=== PATIENT | male | born 1960 | race Caucasian/White ===

== ENCOUNTER → 2016-06-04 | Outpatient (CLI) | payer OTHER ==
[~2016-06-04] VITALS: Ht 177.8 cm; Wt 68.0 kg
[~2016-06-04] MED LIST: ADULT LOW DOSE81 MG PO; AMOXICILLIN 50500 M1 PO; BENADRYL25 MG PO; DURAGESIC TD; FOSAMAX 10 MG10 M1 PO; IMMODIUM PO; LISINOPRIL20 MG PO; LOPRESSOR 12.12.5 MG PO; LOPRESSOR 50 MG50 M1 PO; LOPRESSOR25 PO; MULTIVITAMINS PO; OLANZAPINE20 MG PO; OMEPRAZOLE PO; OXYCODONE HCL15 MG PO; OXYCODONE HCL30 MG PO; OXYCODONE HCL5 M1 PO; OXYCONTIN PO; OXYCONTIN20 M1 PO; OXYCONTIN30 MG PO; OXYCONTIN40 MG PO; PHENERGAN 25 MG25 MG PO; PRENATAL MULTI1 EAC2 PO; PRILOSEC 20 MG20 MG PO; PRILOSEC40 MG PO; REMICADE 1100 MG/VIA IV; remicade IV
[2016-06-04 07:42] VITALS: BP 87/63
== END ==
LOC: OPONC 02:14
DX: K50.90 Crohn's disease, unspecified, without complications (principal)

== ENCOUNTER → 2016-08-28 | Outpatient (CLI) | payer OTHER ==
[2016-08-28 07:50] VITALS: BP 126/96
[2016-08-28 08:03] LABS: ABSOLUTE NEUTROPHILS 4.6 thou/uL (1.4-8.2); BASOPHILS 0.7 % (0.0-2.0); EOSINOPHILS 1.2 % (0.0-3.0); HEMATOCRIT 44.2 % (42.0-52.0); HEMOGLOBIN 15.4 gm/dL (14.0-18.0); LYMPHOCYTES 26.2 % (24.0-44.0); MCH 34.6 pg (26.0-34.0); MCHC 34.8 g/dL (28.0-37.0); MCV 99.4 fL (80.0-100.0); MONOCYTES 10.4 % (1.0-8.0); PLATELET COUNT 153 thou/uL (150-400); POLYS 61.5 % (36.0-66.0); RBC 4.45 mil/uL (4.50-6.00); RDW 13.9 % (10.5-14.5); WBC 7.5 thou/uL (4.0-11.0)
[2016-08-28 08:05] LABS: MANUAL DIFF NO
[2016-08-28 08:13] LABS: ALBUMIN 3.5 g/dL (3.4-5.0); ALKALINE PHOSPHATASE 89 U/L (46-116); ANION GAP 12 mmol/L (7-16); BUN 12 mg/dL (7-18); CALCIUM 8.8 mg/dL (8.5-10.1); CHLORIDE 98 mmol/L (98-107); CO2 23 mmol/L (21-32); CREATININE 1.1 mg/dL (0.7-1.3); GLUCOSE 160 mg/dL (74-106); POTASSIUM 3.2 mmol/L (3.5-5.1); SGOT 29 U/L (15-37); SGPT 27 U/L (30-65); SODIUM 133 mmol/L (136-145); TOTAL BILIRUBIN 0.5 mg/dL (<0.1-1.0); TOTAL PROTEIN 7.1 g/dL (6.4-8.2)
== END ==
LOC: OPONC 08-27 07:10
PROVIDERS: Specialist
DX: K50.90 Crohn's disease, unspecified, without complications (principal)

== ENCOUNTER 2016-09-07 23:38 | Inpatient (IN) | payer OTHER ==
[~2016-09-07] VITALS: Ht 180.3 cm; Wt 52.6 kg
--- NOTE | ~2016-09-07 | H ---
[facility] [place] [address] HISTORY AND PHYSICAL Name: CATE GASTELUM Room #: 432-P ADM IN M.R.#: [id number] Admission: 09/08/16 Attend Phys: Jyoti Morris MD Discharge: Date of : 64 Report #: [id number] THIS REPORT FOR: //name// CC: FAM unknown Jyoti Morris DATE OF ADMISSION: 09/08/2016 ATTENDING PHYSICIAN: Dr. Jyoti Morris. PRIMARY CARE PHYSICIAN: Westley Cherry M.D. CHIEF COMPLAINT: Abdominal pain, nausea, vomiting and diarrhea. HISTORY OF PRESENT ILLNESS: The patient is a 55-year-old who has a lifelong history of Crohn's disease. He is currently on Remicade. He is followed by Dr. Hernandez with GI. He states that for the last 24 hours, he has been having diffuse sharp abdominal pain, it has been constant. His stools have been loose and ranging anywhere from 6-8 stools per day, which is actually typical for him. He denies seeing any blood in his stools. He has also been wretching and had multiple bouts of emesis. He was initially seen at [facility] ER last night for the same symptoms. He had a CT of the abdomen done there. The report states that there was mural thickening of the sigmoid and descending colon with mild adjacent inflammatory fat stranding. No abscess or perforation. He was told to followup with his regular GI doctor and was sent home. He does take chronic pain medications including 60 mg of OxyContin b.i.d. for chronic abdominal pain. He says this pain is worse than his usual pain and his symptoms did not improve in the last 24 hours, so he came into the ER. He initially rated his abdominal pain 8/10, he did receive pain medication in the ER. He is currently resting more comfortably and rates his pain 3/10. He was last seen here at [facility] in July of last year for ascending cholangitis and underwent an open cholecystectomy with extensive lysis of adhesions and small bowel resection. He has had multiple prior abdominal surgeries relating to his Crohn's disease as well. He denies any fevers or any ill contacts. The patient thinks that his last colonoscopy was about [address] Hernandez. PAST MEDICAL HISTORY: Crohn's disease, hypertension, osteoporosis. PAST SURGICAL HISTORY: Bilateral total hip replacements, aortic valve replacement, appendectomy, multiple bowel restrictions and lysis of adhesions, gastric surgery for perforated ulcer, and open cholecystectomy. ALLERGIES: PENICILLIN and LORAZEPAM. HOME MEDICATIONS: Diphenhydramine 25 mg at bedtime p.r.n., metoprolol 12.5 mg at bedtime, aspirin 81 mg at bedtime, oxycodone 30 mg q. 4 hours p.r.n., OxyContin 60 mg b.i.d., vitamin daily, Remicade infusion every [address] [address] HISTORY AND PHYSICAL Name: CATE GASTELUM Room #: 432-P [facility] IN ..#: [id number] Admission: 09/08/16 Attend Phys: Jyoti Morris MD Discharge: Date of : 64 Report #: [id number] and Imodium p.r.n. SOCIAL HISTORY: The patient lives with his parents. 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 He does smoke 1 pack of cigarettes per day. He has been smoking for at least 30 years. Denies any alcohol or drug use. FAMILY HISTORY: Both his parents are alive and healthy. There is no other family members with Crohn's disease. REVIEW OF SYSTEMS: A 12-point review of systems was reviewed with the patient, otherwise negative unless stated in the HPI. PHYSICAL EXAMINATION: GENERAL: The patient is an alert male in no acute distress. VITAL SIGNS: Temperature is 37.3, heart rate 84, respirations 22, blood pressure initially was 151/107, oxygen 100% on room air. HEENT: PERRLA. Sclerae is nonicteric. Oral mucosa is pink and moist. NECK: Supple, no JVD noted. CARDIOVASCULAR: Normal S1, S2. No murmurs, rubs or gallops. RESPIRATORY: Breath sounds are clear bilaterally. No wheezing or rhonchi. Breathing is nonlabored. ABDOMEN: Flat and nondistended. He does have hypoactive bowel sounds; entire abdomen is tender to even light palpation. VASCULAR: No edema noted. Pedal pulses are 2+. NEUROLOGIC: The patient is alert and oriented x 3. He is only answering questions in one more answers though. He will follow commands. He is moving all extremities equally. No focal weakness noted. PSYCHIATRIC: The patient is cooperative, but does have a very flat affect and is only minimally communicative in answering in one word responses. LABORATORIES AND DIAGNOSTICS: WBC is 7.3, hemoglobin 14.0, platelets 120. Sodium is 141, potassium 2.8, BUN 10, creatinine 1.1, glucose 113. LFTs are within normal limits. Lipase is [address] report from [facility] was reviewed, which showed mural thickening of the sigmoid and descending colon with mild inflammatory changes with fat stranding and no abscess or perforation. ASSESSMENT AND PLAN: 1. Crohn's flare. We will go ahead and give a dose of Solu-Medrol; GI is consulted for further recommendations. We will hold off on any IV antibiotics at this time. Continue with pain control and antiemetics. 2. Yijbi-hx-aanxhvv abdominal pain related to #1. Continue with his home dose of OxyContin and add Dilaudid for breakthrough pain. 3. Hypokalemia. This is being replaced. Follow labs. 4. Tobacco abuse. The patient has been advised to quit. 5. Hypertension. Blood pressure has improved since arrival. Continue with Lopressor as at home. [facility] [address] [place] [address] HISTORY AND PHYSICAL Name: CATE GASTELUM Room #: 432-P [facility] IN [facility]#: [id number] Admission: 09/08/16 Attend Phys: Jyoti Morris MD Discharge: Date of : 64 Report #: [id number] 6. Deep venous thrombosis prophylaxis, place sequential compression devices. We will continue to follow the patient closely throughout the hospitalization and make changes based on clinical status. <ELECTRONICALLY SIGNED> By: MARY Escobar 09/08/16 0636 [id number] MARY Escobar /nt
--- NOTE | ~2016-09-07 | P ---
[facility] [place] [address] PROCEDURE REPORT Name: NIRAVCATE Jacobsen Room #: 432-P [facility] IN M.R.#: [id number] Admission: 09/08/16 Attend Phys: Lokesh Brown MD Discharge: 09/09/16 Date of : 64 Report #: [id number] THIS REPORT FOR: //name// CC: FAM unknown Lokesh Brown MD DATE OF SERVICE: 09/09/2016 PROCEDURE #1: EGD with biopsy. Patient of Dr. Lokesh Brown and Dr. Damian Hernandez. INDICATIONS FOR PROCEDURE: The patient has a history of Crohn's disease. He presented with not feeling well since May of this year. He has been on Remicade for his Crohn's disease, but reported increasing abdominal pain, nausea and vomiting as well as diaphoresis. He had a CT scan recently at [facility] and it revealed mural thickening of the sigmoid and descending colon with some mid adjacent inflammatory fat stranding. Colonoscopy will be performed to evaluate these findings. He is status post a right hemicolectomy. He has had several bowel obstructions, duodenal strictures and has also apparently had a gastroenteric anastomosis. DESCRIPTION OF PROCEDURE: Informed consent for this procedure was obtained prior to the administration of any medication. The risks of the procedure which include bleeding, perforation, infection, complications of sedation and the possibility I could miss something have been explained to the patient and he has indicated his consent by signing. Propofol was slowly titrated before and during this procedure for patient comfort by the anesthesia service. The Fujinon upper videoscope was introduced through the upper esophageal sphincter and advanced under direct visualization to the second portion of the duodenum. Findings are noted on withdrawal of the scope. The second portion of the duodenum is filled with bile and appears normal. In the duodenal bulb, the mucosa is flattened and there is a star-shaped erosion that it is nonbleeding. Biopsies were obtained from this area times 2 for histopathology. This is in the distal duodenal bulb. The bulb itself appeared normal. Pylorus, normal mucosa. Antrum, erythematous mucosa. Body, erythematous mucosa. Cardia and fundus, erythematous mucosa, there are some tiny old specks of brown material. I suspect these may be some blood droplets that are present in the antrum of the stomach. Biopsies were then obtained times 2 randomly for histopathology to evaluate for possible etiologies of this diffusely erythematous stomach. The patient has had a history of a gastroenteric anastomosis. There was quite a bit of bile and it was very bubbly in his stomach and I tried to clear as much of that as I could with for visualization purposes. I was never able to identify a gastroenteric [address] [address] PROCEDURE REPORT Name: CATE GASTELUM Room #: 432-P [facility] IN M.R.#: [id number] Admission: 09/08/16 Attend Phys: Lokesh Brown MD Discharge: 09/09/16 Date of : 64 Report #: [id number] anastomosis during this exam. Retroflex view reveals more erythema in the proximal stomach at the level of the cardia and the fundus. The scope was then withdrawn up into the esophagus. The Z-line is appropriately located at the top of the gastric folds and appears normal. The distal esophagus is erythematous. There are no erosions or ulcers; however. I saw no evidence of any Mike's ectopic mucosa. The more proximal esophageal mucosa appeared normal. The scope was withdrawn. The patient went to the recovery area in stable condition. He tolerated the procedure well. The patient was turned for colonoscopy. IMPRESSION: 1. Distal esophageal erythema. 2. Diffuse gastritis. 3. Duodenitis of the bulb. RECOMMENDATIONS: To await the biopsy results and proceed with colonoscopy at this time. Thank you very much once again for allowing me to participate in his care, Dr. Brown.. PROCEDURE #2: Colonoscopy with biopsies. INDICATION FOR PROCEDURE: Evaluate nausea, vomiting, diarrhea and abdominal pain. The patient had a history of thickening of the descending colon and the sigmoid colon. DESCRIPTION OF PROCEDURE: Informed consent for this procedure was obtained prior to the administration of any medication. The risks of the procedure which include bleeding, perforation, infection, complications of sedation and the possibility I could miss something have been explained to the patient and he has indicated his consent by signing. Propofol was slowly titrated before and during this procedure for patient comfort by the anesthesia service. The [employer] System[employer] colonoscope was introduced through the anal sphincter and advanced under direct visualization to the ileocolonic anastomosis and into the ileum. The ileum itself appeared normal. No evidence of any erosions or ulceration. Biopsies are obtained times 2 from the ileum for histopathology to evaluate for microscopic causes of his diarrhea and abdominal pain. He has a history of Crohn's disease. The ileocolonic anastomosis appears intact and I saw no evidence of any ulcerations or erosions. The distal transverse colon appears normal. Splenic flexure, normal mucosa. Descending colon, normal mucosa. There is a loss of vascular pattern in the sigmoid colon and biopsies were obtained randomly from this area times 2 and from the more proximal colon times 2 for histopathology. In the rectum, there [address] [address] PROCEDURE REPORT Name: CATE GASTELUM Room #: 432-P DIS IN M.R.#: [id number] Admission: 09/08/16 Attend Phys: Lokesh Brown MD Discharge: 09/09/16 Date of : 64 Report #: [id number] was a 4 mm sessile polyp removed from the mid rectum with regular biopsy forceps and sent to the pathology lab. Good hemostasis was noted after that polypectomy. Retroflex view does reveal 3-5 soft nodules in the distal rectum. I did biopsy one of these twice for histopathology. I think they had been biopsied previously by Dr. Hernandez and they were hypoplastic. They were not removed completely. Digital rectal exam, I did not even feel the soft nodules on digital rectal exam prior to this colonoscopy. The scope was then withdrawn. The patient went to the recovery area in stable condition. He tolerated the procedure well. IMPRESSION: 1. Mild left-sided edema of the sigmoid colon particularly, but perhaps some of the descending colon as well. Biopsies are pending. Random biopsies from the colon and random biopsies from the normal appearing ileum. 2. Distal rectal nodules as above, hypoplastic originally on histopathology, 2 more biopsies of these were sent for histopathology today. 3. Mid rectal polyp, size 4 mm, removed in toto with the regular biopsy forceps and sent to pathology lab. RECOMMENDATIONS: To await the path report. Patient would like to be discharged home at this time and from our standpoint, I think he can be. He should follow up with Dr. Hernandez as an outpatient. Thank you very much once again for allowing me to participate in his care, Dr. Brown. <ELECTRONICALLY SIGNED> By: Ariadne Acevedo DO 09/10/16 0830 [id number] [id number] Ariadne Acevedo DO /nt
--- NOTE | ~2016-09-07 | S ---
[facility] [address] [place] [address] SURGICAL PATH RPT PROCEDURE Name: SUKHDEV GASTELUM Room #: 432-P DIS IN M.R.#: [id number] Admission: 09/08/16 Date of : 64 Discharge: 09/09/16 Report #: [id number] Path Case #: [id number] PATHOLOGY REPORT COLLECTION DATE: 09/09/2016 RECEIVED DATE: 09/10/2016 SUBMITTING PHYS: Dr. Ariadne Acevedo OTHER PHYS: Dr. Jyoti Brown SPECIMEN(S) RECEIVED: A.Distal duodenal bx B.Random gastric bx C.Ileum bx D.Random colon bx E.Rectal polyp F.Rectal polyp * * * * * * * * * * * * FINAL DIAGNOSIS: A. Small bowel mucosa, distal duodenal, endoscopic biopsy: - Focal fundic-type metaplasia without active inflammation, history of Crohn's disease. - Negative for villous blunting. B. Gastric mucosa, random gastric, endoscopic biopsy: - Mild reactive gastropathy. - Negative for intestinal metaplasia or atrophy. - Negative for Helicobacter pylori. C. Small bowel mucosa, ileum, endoscopic biopsy: - No diagnostic abnormalities, history of Crohn's disease. - Negative for dysplasia or malignancy. D. Large intestine mucosa, random colon, endoscopic biopsy: - Mild focal active colitis with surface epithelial inflammation, history of Crohn's disease. - Negative for dysplasia or malignancy. E. Polyp, rectal polyp, endoscopic biopsy: - Tubular adenoma. - Negative for high grade dysplasia. F. Polyp, rectal polyp above dentate line, endoscopic biopsy: - Hyperplastic polyp. - Negative for dysplasia. COMMENT: Helicobacter pylori immunohistochemical stain performed on block B1- negative. (IUV; 09/11/16) [address] [place] [address] SURGICAL PATH RPT PROCEDURE Name: SUKHDEV GASTELUM Room #: 432-P [facility] IN M.R.#: [id number] Admission: 09/08/16 Date of : 64 Discharge: 09/09/16 Report #: [id number] Path Case #: [id number] PATHOLOGIST: Melina Clinton M.D. REPORT ELECTRONICALLY SIGNED BY: Melina Clniton M.D. DATE/TIME: 09/11/2016 12:57 * * * * * * * * * * * * GROSS PATHOLOGY: A. Received in formalin labeled "Sukhdev Gastelum, distal duodenal biopsy," are two segments of leyva soft tissue measuring 0.5 x 0.4 x 0.1 cm in aggregate dimensions and ranging from 0.4 to 0.5 cm in maximum dimension. The specimen is submitted entirely in cassette A1. B. Received in formalin labeled "Sukhdev Gastelum random gastric biopsy," is a segment of leyva soft tissue measuring 0.7 cm in maximum dimension. The specimen is submitted entirely in cassette B1. C. Received in formalin labeled "Sukhdev Gastelum, ileum biopsy," are two segments of leyva soft tissue measuring 0.8 x 0.4 x 0.1 cm in aggregate dimensions and ranging from 0.6 to 0.8 cm in maximum dimension. The specimen is submitted entirely in cassette C1. D. Received in formalin labeled "Sukhdev Gastelum, random colon biopsy," are four segments of leyva soft tissue measuring 1.0 x 0.8 x 0.1 cm in aggregate dimensions and ranging from 0.2 to 1.0 cm in maximum dimension. The specimen is submitted entirely in cassette D1. E. Received in formalin labeled "Sukhdev Gastelum, rectal polyp," is a segment of leyva soft tissue measuring 0.8 cm in maximum dimension. The specimen is submitted entirely in cassette E1. F. Received in formalin labeled "Sukhdev Gastelum, rectal polyp above dentate line," are two segments of leyva soft tissue measuring 0.6 x 0.6 x 0.1 cm in aggregate dimensions and ranging from 0.5 to 0.6 cm in maximum dimension. The specimen is submitted entirely in cassette F1. (CAA; 09/10/2016) CLINICAL HISTORY: Abdominal pain, gastritis A; R/O Crohn's B: R/O H. pylori C and D: R/O history of Crohn's INITIAL CPT CODE(S): A; 81628 B; 82828, 71958 C; 12626 D; 47404 E; 66719 F; 41522 Professional services performed by [facility] at [address] [address] SURGICAL PATH RPT PROCEDURE Name: SUKHDEV GASTELUM Room #: 432-P DIS IN M.R.#: [id number] Admission: 09/08/16 Date of : 64 Discharge: 09/09/16 Report #: [id number] Path Case #: [id number] [address], [place] [address] Technical services performed by [facility] at [address] [place] [address], [place] [address]. [facility] [address] [place] [address] PHONE: [phone] DIRECTOR: Jevon Frankel M.D. * * * END OF REPORT * * *
[2016-09-07 23:45] VITALS: BP 151/107
[2016-09-08] VITALS (7 sets, daily range): BP systolic 116–149; BP diastolic 66–94
[2016-09-08 00:55] LABS: ABSOLUTE NEUTROPHILS 5.1 thou/uL (1.4-8.2); BASOPHILS 0.7 % (0.0-2.0); EOSINOPHILS 1.7 % (0.0-3.0); LYMPHOCYTES 18.5 % (24.0-44.0); MCH 35.1 pg (26.0-34.0); MCV 100.3 fL (80.0-100.0); MONOCYTES 9.3 % (1.0-8.0); PLATELET COUNT 120 thou/uL (150-400); POLYS 69.8 % (36.0-66.0); RBC 3.99 mil/uL (4.50-6.00); RDW 13.9 % (10.5-14.5); WBC 7.3 thou/uL (4.0-11.0)
[2016-09-08 00:58] LABS: MANUAL DIFF NO
[2016-09-08 01:08] LABS: ALBUMIN 3.2 g/dL (3.4-5.0); CALCIUM 8.7 mg/dL (8.5-10.1); CREATININE 1.1 mg/dL (0.7-1.3); TOTAL BILIRUBIN 0.6 mg/dL (<0.1-1.0); TOTAL PROTEIN 6.5 g/dL (6.4-8.2)
[2016-09-08 01:10] LABS: POTASSIUM 2.8 mmol/L (3.5-5.1)
[2016-09-08 12:05] LABS: MAGNESIUM 1.4 mg/dL (1.8-2.4); POTASSIUM 3.5 mmol/L (3.5-5.1)
[2016-09-09 04:00] VITALS: BP 105/73
[2016-09-09 06:13] LABS: CALCIUM 8.2 mg/dL (8.5-10.1); CREATININE 0.9 mg/dL (0.7-1.3); MAGNESIUM 2.2 mg/dL (1.8-2.4); POTASSIUM 3.7 mmol/L (3.5-5.1)
[2016-09-09 07:37] VITALS: BP 103/61
[2016-09-09 14:43] VITALS: BP 103/61
== END 2016-09-09 14:53 | disposition home or self-care (01) | DRG 385 ==
LOC: ER 23:38 → 4E 09-08 01:13 → EROBS 09-08 01:13 → 4E 09-08 01:52
PROVIDERS: Nurse Practitioner Acute Care; Physician Assistant
DX: K50.10 Crohn's disease of large intestine without complications (principal); E43 Unspecified severe protein-calorie malnutrition; Z68.1 Body mass index [BMI] 19.9 or less, adult; K29.70 Gastritis, unspecified, without bleeding; K29.80 Duodenitis without bleeding; F17.210 Nicotine dependence, cigarettes, uncomplicated; E87.6 Hypokalemia; I10 Essential (primary) hypertension; G89.29 Other chronic pain; F10.10 Alcohol abuse, uncomplicated; M81.0 Age-related osteoporosis without current pathological fracture; F11.10 Opioid abuse, uncomplicated; Z96.643 Presence of artificial hip joint, bilateral; Z88.0 Allergy status to penicillin; Z88.8 Allergy status to other drugs, medicaments and biological substances; Z90.49 Acquired absence of other specified parts of digestive tract; Z79.899 Other long term (current) drug therapy; Z79.82 Long term (current) use of aspirin; Z80.0 Family history of malignant neoplasm of digestive organs
CPT/HCPCS: 10084; 62110; 62900; 70005

== ENCOUNTER → 2016-10-08 | Outpatient (CLI) | payer OTHER ==
[2016-10-08 07:30] VITALS: BP 126/79
== END ==
LOC: OPONC 06:18
DX: K50.90 Crohn's disease, unspecified, without complications (principal)

== ENCOUNTER → 2016-11-23 | Outpatient (CLI) | payer OTHER ==
[2016-11-23 09:58] VITALS: BP 151/64
== END ==
LOC: OPONC 11-19 03:35
DX: K56.69 Other intestinal obstruction (principal)

== ENCOUNTER → 2017-01-08 | Outpatient (CLI) | payer OTHER | LOC: OPONC 09:15 | DX: K56.69 Other intestinal obstruction (principal) ==

== ENCOUNTER 2017-06-09 11:32 | Emergency (ER) | payer OTHER ==
[~2017-06-09] VITALS: Ht 180.3 cm; Wt 63.5 kg
--- NOTE | ~2017-06-09 | EKG ---
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: ISSA : 1960 Requested By: Drake Gonsalez Order Number: [id number] MD: Ozzy Green Measurements Intervals [place] Rate: 77 P: 76 GA: 174 QRS: 85 QRSD: 106 T: 190 QT: 417 QTc: 472 Interpretive Statements Sinus rhythm Probable LVH with secondary repol abnrm Abnormal T, probable ischemia, anterior leads Compared to ECG 07/22/2015 13:54:50 T-wave abnormality now present Ventricular premature complex(es) no longer present Electronically Signed On 06-09-2017 16:06:41 AUDITOR APPRAISER by Ozzy Green [email or web address] <ELECTRONICALLY SIGNED> By: Ozzy Green MD, [facility] 06/09/17 1606 1225 1225 Ozzy Green MD, [facility] /EPI
[~2017-06-09 11:32] MED LIST changes: +INFLECTRA100 MG IV
[2017-06-09 11:53] LABS: HEMATOCRIT 42.6 % (42.0-52.0); HEMOGLOBIN 14.9 gm/dL (14.0-18.0); MCH 36.7 pg (26.0-34.0); MCHC 34.9 g/dL (28.0-37.0); MCV 105.2 fL (80.0-100.0); RBC 4.05 mil/uL (4.50-6.00); RDW 14.5 % (10.5-14.5)
[2017-06-09 12:12] LABS: ANION GAP 11 mmol/L (7-16); BUN 27 mg/dL (7-18); CALCIUM 7.9 mg/dL (8.5-10.1); CHLORIDE 100 mmol/L (98-107); CO2 24 mmol/L (21-32); CREATININE 1.3 mg/dL (0.7-1.3); GLUCOSE 106 mg/dL (74-106); POTASSIUM 3.9 mmol/L (3.5-5.1)
[2017-06-09 12:13] LABS: SODIUM 135 mmol/L (136-145)
[2017-06-09 12:17] LABS: ALBUMIN 3.2 g/dL (3.4-5.0); LIPASE 199 U/L (73-393); SGOT 64 U/L (15-37); SGPT 38 U/L (30-65); TOTAL BILIRUBIN 0.2 mg/dL (<0.1-1.0); TOTAL PROTEIN 6.8 g/dL (6.4-8.2); TROPONIN-I < 0.04 ng/mL (<0.06)
[2017-06-09 13:10] VITALS: BP 124/74
== END 2017-06-09 13:10 | disposition home or self-care (01) ==
LOC: ER 11:32
PROVIDERS: Emergency Medicine
DX: F10.129 Alcohol abuse with intoxication, unspecified (principal); K50.90 Crohn's disease, unspecified, without complications; F17.210 Nicotine dependence, cigarettes, uncomplicated; Z90.49 Acquired absence of other specified parts of digestive tract; Z88.0 Allergy status to penicillin; Z88.8 Allergy status to other drugs, medicaments and biological substances; W18.39XA Other fall on same level, initial encounter; Y93.89 Activity, other specified; Y92.89 Other specified places as the place of occurrence of the external cause; Y99.8 Other external cause status